=== PATIENT | female | born 1995 | race Caucasian/White ===

== ENCOUNTER 2016-08-20 20:21 | Emergency (ER) | payer BC ==
--- NOTE | 2016-08-20 21:14 | ED ---
Psychiatric Complaint - HPI Summary HPI Summary: Patient presents for evaluation of recurrent depression and suicidal thoughts. 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 Has had some recent family and school stress, while recovering from changed medication regimen. Already has a therapist and medication changed from zoloft to risperdal. Denies coingestants, focal complaints. No allev factors attempted. 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 - Friend Hx Last Menstrual Period: 2 WEEKS AGO Onset/Duration: Gradual Onset Timing: Intermittent Episode Lasting - Allergies/Home Medications Allergies/Adverse Reactions: Allergies Allergy/AdvReac Type Severity Reaction Status Date / Time Sertraline [From Zoloft] Allergy Unknown Verified 08/20/16 20:24 Reaction Details PMH/Surg Hx/FS Hx/Imm Hx Infectious Disease History: No Infectious Disease History: Denies: Traveled Outside the [place] in Last 30 Days - Social History Alcohol Use: Occasionally Substance Use Type: Reports: None Smoking Status (MU): Never Smoked Tobacco Review of Systems Positive: Anxious, Depressed All Other Systems Reviewed And Are Negative: Yes Physical Exam Triage Information Reviewed: Yes Vital Signs On Initial Exam: Initial Vitals Temp Pulse Resp BP Pulse Ox 99.7 F 93 18 136/81 100 08/20/16 20:23 08/20/16 20:23 08/20/16 20:23 08/20/16 20:23 08/20/16 20:23 Vital Signs Reviewed: Yes Appearance: Positive: Well-Appearing, No Pain Distress, Well-Nourished Skin: Positive: Warm, Skin Color Reflects Adequate Perfusion, Dry, Other - L forearm hemostatic small superfical lacerations not requiring repair. Head/Face: Positive: Normal Head/Face Inspection Eyes: Positive: Normal, EOMI, LITA ENT: Positive: Normal ENT inspection, Hearing grossly normal Respiratory/Lung Sounds: Positive: Clear to Auscultation, Breath Sounds Present Cardiovascular: Positive: Normal, RRR, Pulses are Symmetrical in both Upper and Lower Extremities Abdomen Description: Positive: Nontender, No Organomegaly, Soft. Negative: CVA Tenderness (R), CVA Tenderness (L) Musculoskeletal: Positive: Normal, Strength/ROM Intact Neurological: Positive: Normal, Sensory/Motor Intact, Alert, Oriented to Person Place, Time, CN Intact II-III, Reflexes Intact, NV Bundle Intact Distally, Normal Gait. Negative: Babinski Bilateral, Cerebellar Dysfunction Psychiatric: Positive: Anxious Diagnostics - Vital Signs Vital Signs Temp Pulse Resp BP Pulse Ox 08/20/16 20:23 99.7 F 93 18 136/81 100 - Laboratory Lab Statement: Any lab studies that have been ordered have been reviewed, and results considered in the medical decision making process. Course/Dx - Differential Dx/Clinical Impression Differential Diagnosis/HQI/PQRI: Positive: Bipolar Disorder, Depression, Suicidal Ideation, Suicidal Gesture, Other - Primary concern for high risk suicide. Although superfical lacerations are cry for help, she is poorly dealing with new stressful situation. Provider Diagnosis: Suicidal intent Discharge - Discharge Plan Condition: Stable Disposition: OTHER Discharge Disposition Comment: Pending Mental Health Evaluation.
[2016-08-20 21:24] LABS: Hematocrit 40 % (35-47); Hemoglobin 13.2 g/dl (12.0-16.0); Mean Corpuscular HGB Conc 33 g/dl (31-36); Mean Corpuscular Hemoglobin 29 pg (27-31); Mean Corpuscular Volume 87 fL (80-97); Mean Platelet Volume 9 um3 (7.4-10.4); Red Blood Count 4.59 10^6/ul (4.0-5.4); Red Cell Distribution Width 13 % (10.5-15); White Blood Count 7.7 10^3/ul (3.5-10.8)
[2016-08-20 21:41] LABS: ALT 22 U/L (7-52); AST 21 U/L (13-39); Albumin 4.8 g/dL (3.2-5.2); Alkaline Phosphatase 46 U/L (34-104); Anion Gap 9 mmol/L (2-11); Blood Urea Nitrogen 11 mg/dL (6-24); CO2 Carbon Dioxide 27 mmol/L (22-32); Calcium 9.8 mg/dL (8.6-10.3); Chloride 101 mmol/L (101-111); EGFR African American 159.2 (>60); EGFR Non-African American 123.8 (>60); Globulin 3.2 g/dL (2-4); Glucose 80 mg/dL (70-100); Potassium 3.8 mmol/L (3.5-5.0); Sodium 137 mmol/L (133-145)
[2016-08-20 21:44] VITALS: BP 126/75
[2016-08-20 22:06] LABS: Acetaminophen < 15 mcg/mL; Salicylate < 2.50 mg/dL (<30)
[2016-08-20 22:16] LABS: TSH (Thyroid Stimulating Horm) 1.63 mcIU/mL (0.34-5.60)
== END 2016-08-20 23:28 ==
LOC: ED 20:21
DX: R45.851 Suicidal ideations (principal); F41.9 Anxiety disorder, unspecified; F32.9 Major depressive disorder, single episode, unspecified
CPT/HCPCS: 36415; 80053; 80329; 84443; 85027; 99283; G0480

== ENCOUNTER 2016-08-31 11:59 | Inpatient (IN) | payer BC ==
[2016-08-31 12:42] LABS: Urine Bilirubin Negative (Negative); Urine Glucose Negative (Negative); Urine Nitrite Negative (Negative)
[2016-08-31] MEDS ORDERED: Haloperidol INJ IV/IM* 5 MG/ML AMP IM ONE (13:09)
[2016-08-31 13:18] LABS: Benzodiazepine Urine Screen None Detected (None Detect)
[2016-08-31] MEDS ORDERED: Al Hydrox/Mg Hydrox/Simet LIQ* 30 ML UDC PO PRN (14:46)
[2016-08-31] MEDS ORDERED: Nicotine Inhaler* 10 MG AMP INH PRN (14:46)
[2016-08-31] MEDS ORDERED: Acetaminophen TAB* 325 MG PO PRN (14:46)
--- NOTE | 2016-08-31 21:28 | ED ---
I, Oh,Natacha, scribed for Mj Akers MD on 08/31/16 at 1232 . Psychiatric Complaint - HPI Summary HPI Summary: This 21 y/o female presents to ED with acute on chronic manic episode. Pt is noted agitated, and states "I don't trust anyone in this hospital'. Therapist/ geriatric social worker Radha is present at bedside and reports that pt has been Zoloft and risperidone. Her primary care involves psychiologist Dr. Shin at [facility], who per geriatric social worker prescribes her anti psychotic medications. Her anti psychotic meds have been going through med change. 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 She expresses vague SI, stating that she has given a thought of taking a whole bottle of her meds. Radha confirms that pt has made vague expression of SI throughout her sessions. - History Of Current Complaint Chief Complaint: ED Time Seen by Provider: 08/31/16 12:11 Hx Obtained From: Patient, Family/Field Service Representative - Psychologist/geriatric social worker Hx Last Menstrual Period: 2 WEEKS AGO ?: No Onset/Duration: Sudden Onset, Still Present Timing: Constant Severity Initially: Moderate Severity Currently: Moderate Character: Depressed, Anxious Aggravating Factor(s): Nothing Alleviating Factor(s): Nothing Related History: Positive For: Prior Psychiatric Issues Has Suicidal: Reports: Thoughts - Allergies/Home Medications Allergies/Adverse Reactions: Allergies Allergy/AdvReac Type Severity Reaction Status Date / Time Sertraline [From Zoloft] Allergy Unknown Verified 08/20/16 20:24 Reaction Details Home Medications: Home Medications risperiDONE TAB* [RisperDAL*] 1 mg PO BID 08/31/16 [History Confirmed 08/31/16] PMH/Surg Hx/FS Hx/Imm Hx Psychiatric History: Denies: Hx Eating Disorder, Hx of Violent Episodes Against Others Infectious Disease History: No Infectious Disease History: Denies: Traveled Outside the US in Last 30 Days - Family History Known Family History: Positive: Diabetes - Social History Occupation: Student - [employer] Alcohol Use: Occasionally Hx Substance Use: Yes Substance Use Type: Reports: Marijuana Hx Tobacco Use: No Smoking Status (MU): Never Smoked Tobacco Review of Systems Positive: Nausea, Other - positive constipation Negative: dysuria, hematuria Positive: Headache Positive: Anxious All Other Systems Reviewed And Are Negative: Yes Physical Exam - Summary Physical Exam Summary: General: Comfortable, pleasant, alert. No sweating. No physical stress. HEENT: Moist mucosa. Pupil 6 mm equal and reaction. Neck: soft, supple, no adenopathy, no edema. No nuchal rigidity Heart: S1, S2, RRR, no murmurs, rubs, or gallops Lungs: Clear to auscultation, breathing comfortable, no wheezes or rales Abdominal: Soft, flat, nontender Extremities: No edema, no calf tenderness Neuro: Alert and oriented x 3 Psych: Somewhat. psycho motor agitation. Somewhat logical with flight of ideas. Fairly good eye contact. Tearful at time,somewhat sporadically. No obvious hallucination. Triage Information Reviewed: Yes Vital Signs On Initial Exam: Initial Vitals Temp Pulse Resp BP Pulse Ox 100.2 F 97 20 129/81 100 08/31/16 12:02 08/31/16 12:02 08/31/16 12:02 08/31/16 12:02 08/31/16 12:02 Vital Signs Reviewed: Yes Diagnostics - Vital Signs Vital Signs Temp Pulse Resp BP Pulse Ox 08/31/16 12:02 100.2 F 97 20 129/81 100 - Laboratory Lab Results: Lab Results 08/31/16 08/31/16 Range/Units 12:35 12:35 Urine Color Yellow Urine Appearance Clear Urine pH 6.0 (5-9) Ur Specific Edison 1.009 L (1.010-1.030) Urine Protein Negative (Negative) Urine Ketones Trace H (Negative) Urine Blood Negative (Negative) Urine Nitrate Negative (Negative) Urine Bilirubin Negative (Negative) Urine Urobilinogen Negative (Negative) Ur Leukocyte Esterase Negative (Negative) Urine Glucose Negative (Negative) Urine Opiates Screen None detected (None Detect) Ur Barbiturates Screen None detected (None Detect) Ur Phencyclidine Scrn None detected (None Detect) Ur Amphetamines Screen None detected (None Detect) U Benzodiazepines Scrn None detected (None Detect) Urine Cocaine Screen None detected (None Detect) U Cannabinoids Screen Presumptive positive H (None Detect) Lab Statement: Any lab studies that have been ordered have been reviewed, and results considered in the medical decision making process. Course/Dx - Course Course Of Treatment: she has had recurrance of disorganized thought, erractic behaviors, and thoughts of suicide. she is actually asking us to admit her because she states she needs help. Mental health has evaluated and she will be admitted. no obvious organic etiology. - Differential Dx/Clinical Impression Differential Diagnosis/HQI/PQRI: Positive: Acute Psychosis, Alcohol Intoxication , Anxiety, Bipolar Disorder, Depression, Drug Overdose/Intentional, Drug Overdose/Unintentional, Homicidal Ideation, Homicidal Gesture, Schizophrenia, Suicide Attempt, Suicidal Ideation, Suicidal Gesture Provider Diagnosis: Manic behavior - Physician Notifications Patient Is Medically Stable For: Psych Evaluation - at 1311 PM Discharge - Discharge Plan Condition: Guarded Disposition: [facility] The documentation as recorded by the Surendra rehman Soohyun accurately reflects the service I personally performed and the decisions made by me, Mj Akers MD.
[2016-08-31] MEDS: risperiDONE TAB* 1 MG PO SCH (21:40)
[2016-09-01 09:45] LABS: Hematocrit 42 % (35-47); Hemoglobin 13.9 g/dl (12.0-16.0); Mean Corpuscular HGB Conc 33 g/dl (31-36); Mean Corpuscular Hemoglobin 29 pg (27-31); Mean Corpuscular Volume 87 fL (80-97); Mean Platelet Volume 9 um3 (7.4-10.4); Red Blood Count 4.81 10^6/ul (4.0-5.4); Red Cell Distribution Width 13 % (10.5-15); White Blood Count 6.2 10^3/ul (3.5-10.8)
[2016-09-01 10:02] LABS: ALT 18 U/L (7-52); AST 17 U/L (13-39); Albumin 4.9 g/dL (3.2-5.2); Alkaline Phosphatase 49 U/L (34-104); Anion Gap 8 mmol/L (2-11); BUN/Creatinine Ratio 23.5 (8-20); Blood Urea Nitrogen 16 mg/dL (6-24); CO2 Carbon Dioxide 27 mmol/L (22-32); Chloride 102 mmol/L (101-111); EGFR African American 140.5 (>60); EGFR Non-African American 109.2 (>60); Globulin 3.4 g/dL (2-4); Glucose 105 mg/dL (70-100); Potassium 3.9 mmol/L (3.5-5.0); Sodium 137 mmol/L (133-145); Total Protein 8.3 g/dL (6.4-8.9)
[2016-09-01] MEDS: Vitamin THERAPEUTIC TAB PO SCH (10:11)
[2016-09-01] MEDS: risperiDONE TAB* 1 MG PO SCH ×2 (10:11→20:41)
[2016-09-01 10:25] LABS: Acetaminophen < 15 mcg/mL; Alcohol < 10 mg/dL (<10); Salicylate < 2.50 mg/dL (<30)
[2016-09-01 10:33] LABS: TSH (Thyroid Stimulating Horm) 1.07 mcIU/mL (0.34-5.60)
--- NOTE | 2016-09-01 12:00 | PN ---
[facility]: Group Therapy Note - Service Type Service Type: [id number] Group Psychotherapy - Cognitive Behavioral Group Therapy ( CBT):Patient attended CBT programming this morning and presented with flat affect that did not vary with discussion. Although responsive to direct prompts to respond to questions, patient did not engage in spontaneous conversation.
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
[2016-09-01] MEDS ORDERED: Docusate CAP* 100 MG PO PRN (16:12)
[2016-09-01] MEDS: Divalproex ER TAB(*) 500 MG PO SCH (20:41)
[2016-09-01] MEDS: QUEtiapine TAB* 100 MG PO SCH (20:41)
[2016-09-02] MEDS: risperiDONE TAB* 1 MG PO SCH ×2 (08:39→20:05)
[2016-09-02] MEDS: Vitamin THERAPEUTIC TAB PO SCH (08:39)
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
[2016-09-02] MEDS: QUEtiapine TAB* 100 MG PO SCH (20:05)
[2016-09-02] MEDS: Divalproex ER TAB(*) 500 MG PO SCH (20:05)
[2016-09-03] MEDS: Vitamin THERAPEUTIC TAB PO SCH (09:01)
[2016-09-03] MEDS: risperiDONE TAB* 1 MG PO SCH (09:01)
--- NOTE | 2016-09-03 13:50 | PN ---
MHU: Group Therapy Note - Service Type Service Type: 06938 Group Psychotherapy - Cognitive Behavioral Group Therapy ( CBT):Patient was attentive and participatory in CBT programming this morning, and remained in good behavioral control. Patient expressed positive insights regarding relevant treatment interventions and goals.
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
[2016-09-03] MEDS: Divalproex ER TAB(*) 500 MG PO SCH (20:21)
[2016-09-03] MEDS: QUEtiapine TAB* 100 MG PO SCH (20:21)
[2016-09-04] MEDS: Vitamin THERAPEUTIC TAB PO SCH (08:03)
--- NOTE | 2016-09-04 11:55 | PN ---
MHU: Group Therapy Note - Service Type Service Type: [id number] Group Psychotherapy - Cognitive Behavioral Group Therapy ( CBT):Patient was attentive and participatory in CBT programming this morning, and remained in good behavioral control. Patient expressed positive insights regarding relevant treatment interventions and goals. Bita was responsive to discussion addressing internal stress in the context of self dialogue when depressed.
--- NOTE | 2016-09-04 14:03 | PN ---
Subjective - Subjective Service Type: 63275 Hosp care 15 min low complexity Subjective: The patient states that she is tolerating the new combination of Depakote and seroquel well and denies untoward effects. She is requesting discharge so that she can go to some kind of field trip to [facility], sponsored by [employer]. I understand that the SW, Lauren Bell, received a call from representatives of that the patient is by no means ready to embark on such a journey. Further collateral from the patient mother, who has been communicating with her over the phone, indicate that she is not yet at her baseline. The patient denies SI or HI. Objective - Appearance Appearance: Well Developed/Nourished Dysmorphic Features: No Hygiene: Normal Grooming: Fairly Well Kept - Behavior Psychomotor Activities: Normal Exhibits Abnormal Movement: No - Attitude and Relatedness Attitude and Relatedness: Cooperative Eye Contact: Fair - Speech Quality: Unpressured Latencies: Normal Quantity: Appropriate - Mood Patient's Decription of Mood: "Fine" - Affect Observed Affect: Fair Affect Consistent with: Euthymia - Thought Process Patient's Thought Process: Coherent Thought Content: Yes Paranoid Ideation, No Passive Wish, No Suicidal Planning, No Homicidal Ideation - Sensorium Experiencing Hallucinations: No, Sensorium is Clear Type of Hallucinations: Visual: No, Auditory: No, Command: No - Level of Consciousness Level of Consciousness: Alert Orientation: Yes Intact, Yes Orientated to Time, Yes Orientated to Place, Yes Orientated to Person - Impulse Control Impulse Control: Tenuous - Insight and Judgement Insight and Judgement: Fair - Group Participation Particating in Group Activities: Yes - Medication Management Medication Management Adherence: Yes Assessment - Assessment Merits Inpatient Hospitalization: For Immediate Safety, For Stabilization Inpatient DSM-IV Dx: Other specified bipolar disorder. PTSD. Cannabis use disorder Clinical Impression: 21 y.o. single, white, homosexual, female student with a history of bipolar disorder and [id number] presented voluntarily seeking admission for extreme symptoms of anxiety and inability to contract for safety if discharged. Plan - Plan Treatment Plan: Name: VIKKI SRIVASTAVA Birthdate: 1995 [id number] The patient is now on Depakote ER 500mg PO qhs and quetiapine 200mg PO, which she is tolerating well. She voices no complaints today. We will track her progress over the weekend and see if she's improved enough for discharge home by Wednesday or Wednesday. Will increase Depakote ER to 750mg PO qhs based on serum level of 54. Continued Medication Management: Different Medication Medications: Current Medications Acetaminophen (Tylenol Tab*) 650 mg PO Q4H PRN PRN Reason: for pain; or Temp >101 F Al Hydrox/Mg Hydrox/Simethicone (Maalox Plus*) 30 ml PO Q4H PRN PRN Reason: INDIGESTION Divalproex Sodium (Depakote Er Tab(*)) 500 mg PO BEDTIME [facility] Last Admin: 09/03/16 20:21 Dose: 500 mg Docusate Sodium (Colace Cap*) 100 mg PO BID PRN PRN Reason: CONSTIPATION Multivitamins (Theragran Tab*) 1 tab PO DAILY [facility] Last Admin: 09/04/16 08:03 Dose: 1 tab Nicotine (Nicotine Inhaler*) 10 mg INH Q2H PRN PRN Reason: CRAVING Quetiapine Fumarate (Seroquel Tab*) 200 mg PO BEDTIME [facility] Last Admin: 09/03/16 20:21 Dose: 200 mg - Discharge Plan Discharge Plan: Inpatient Hospitalization Lab Results - Lab Results Lab Results: 09/04/16 07:36 Valproic Acid 54.0
[2016-09-04] MEDS: QUEtiapine TAB* 100 MG PO SCH (21:42)
[2016-09-04] MEDS: Divalproex ER TAB(*) 250 MG PO SCH (21:42)
[2016-09-05] MEDS: Vitamin THERAPEUTIC TAB PO SCH (09:03)
--- NOTE | 2016-09-05 16:11 | PN ---
Subjective - Subjective Service Type: 82908 Hosp care 15 min low complexity Subjective: The patient is resting comfortably in her room as I enter. She had a fairly intense visit from her mother this morning and was observed to be tearful and upset, as was her mother. When asked about the nature of their conversation she states "We're just working through some things" and appears not to want to discuss it with me. She indicates that she is tolerating her new medications well and denies side effects. The patient endorses interest in leaving the hospital on Wednesday when Dr. Mora returns. Objective - Appearance Appearance: Well Developed/Nourished Dysmorphic Features: No Hygiene: Normal Grooming: Fairly Well Kept - Behavior Psychomotor Activities: Normal Exhibits Abnormal Movement: No - Attitude and Relatedness Attitude and Relatedness: Cooperative Eye Contact: Fair - Speech Quality: Unpressured Latencies: Normal Quantity: Appropriate - Mood Patient's Decription of Mood: "Okay" - Affect Observed Affect: Fair - Thought Process Patient's Thought Process: Coherent Thought Content: No Passive Wish, No Suicidal Planning, No Homicidal Ideation, No Paranoid Ideation - Sensorium Experiencing Hallucinations: No, Sensorium is Clear Type of Hallucinations: Visual: No, Auditory: No, Command: No - Level of Consciousness Level of Consciousness: Alert Orientation: Yes Intact, Yes Orientated to Time, Yes Orientated to Place, Yes Orientated to Person - Impulse Control Impulse Control: Intact - Insight and Judgement Insight and Judgement: Good - Group Participation Particating in Group Activities: Yes - Medication Management Medication Management Adherence: Yes Assessment - Assessment Inpatient DSM-IV Dx: Other specified bipolar disorder. PTSD. Cannabis use disorder Clinical Impression: 21 y.o. single, white, homosexual, female IC student with a history of bipolar disorder and [id number] presented voluntarily seeking admission for extreme symptoms of anxiety and inability to contract for safety if discharged. Plan - Plan Treatment Plan: Name: VIKKI SRIVASTAVA Birthdate: 1995 [id number] The patient is now on Depakote ER 750mg PO qhs and quetiapine 200mg PO, which she is tolerating well. She voices no complaints today. We will track her progress over the weekend and see if she's improved enough for discharge home by Wednesday or Wednesday. Continued Medication Management: Different Medication Medications: Current Medications Acetaminophen (Tylenol Tab*) 650 mg PO Q4H PRN PRN Reason: for pain; or Temp >101 F Al Hydrox/Mg Hydrox/Simethicone (Maalox Plus*) 30 ml PO Q4H PRN PRN Reason: INDIGESTION Divalproex Sodium (Depakote Er Tab(*)) 750 mg PO BEDTIME [facility] Last Admin: 09/04/16 21:42 Dose: 750 mg Docusate Sodium (Colace Cap*) 100 mg PO BID PRN PRN Reason: CONSTIPATION Multivitamins (Theragran Tab*) 1 tab PO DAILY [facility] Last Admin: 09/05/16 09:03 Dose: 1 tab Nicotine (Nicotine Inhaler*) 10 mg INH Q2H PRN PRN Reason: CRAVING Quetiapine Fumarate (Seroquel Tab*) 200 mg PO BEDTIME [facility] Last Admin: 09/04/16 21:42 Dose: 200 mg - Discharge Plan Discharge Plan: Inpatient Hospitalization
[2016-09-05] MEDS: Divalproex ER TAB(*) 250 MG PO SCH (20:25)
[2016-09-05] MEDS: QUEtiapine TAB* 100 MG PO SCH (20:26)
[2016-09-06] MEDS: Vitamin THERAPEUTIC TAB PO SCH (08:22)
[2016-09-06] MEDS: Divalproex ER TAB(*) 250 MG PO SCH (20:19)
[2016-09-06] MEDS: QUEtiapine TAB* 100 MG PO SCH (20:20)
[2016-09-07 08:12] VITALS: BP 114/72
[2016-09-07] MEDS: Vitamin THERAPEUTIC TAB PO SCH (11:24)
[2016-09-07] MEDS ORDERED: hydrOXYzine HCL TAB* 25 MG PO PRN (12:33)
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
--- NOTE | 2016-09-07 14:49 | PN ---
[facility]: Group Therapy Note - Service Type Service Type: [id number] Group Psychotherapy - Cognitive Behavioral Group Therapy ( CBT):Patient was attentive and participatory in CBT programming this morning, and remained in good behavioral control. Patient expressed positive insights regarding relevant treatment interventions and goals.
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
== END 2016-09-07 16:45 | DRG 753 ==
LOC: ED 11:59 → BSU 18:12
PROVIDERS: ADMIT Psychiatry & Neurology Psychiatry; ATTEND Psychiatry & Neurology Psychiatry
DX: F31.89 Other bipolar disorder (principal); R45.851 Suicidal ideations; F43.10 Post-traumatic stress disorder, unspecified; F12.90 Cannabis use, unspecified, uncomplicated; Z62.810 Personal history of physical and sexual abuse in childhood
CPT/HCPCS: 36415; 80053; 80164; 80307; 80320; 80329; 81003; 84443; 84702; 85025; 90853; 96102; 99222; 99231; 99238; A9270-GY; G0480